=== PATIENT | female | born 1935 | race Caucasian/White ===

== ENCOUNTER → 2023-07-10 09:49 | Outpatient (REF) | payer MEDICARE, BC, SELFPAY ==
[2023-07-10 10:35] LABS: % Basophils 0.9 % (0-2); % Eosinophils 6.4 % (0-6); % Immature Granulocytes 0.2 % (0-0.5); % Lymphocytes 30.9 % (20.5-51.1); % Monocytes 10.1 % (1.7-9.3); % Neutrophils 51.5 % (42.2-75.2); Absolute Eosinophils 0.3 10^3/uL (0-0.7); Absolute Lymphocytes 1.4 10^3/uL (1.2-3.4); Absolute Monocytes 0.5 10^3/uL (0.1-0.6); Absolute Neutrophils 2.4 10^3/uL (1.4-6.5); Hematocrit 34.1 % (37.0-47.0); Hemoglobin 11.6 g/dL (12.0-16.0); Mean Corpuscular Hgb 31.8 pg (27.0-31.0); Mean Corpuscular Volume 93.4 fL (81.0-99.0); Mean Platelet Volume 11.2 fL (7.4-10.4); Nucleated Red Blood Cells % 0 %; Platelet Count 194 10^3/uL (130-400); Red Blood Cell Count 3.65 10^6/uL (4.20-5.40); Red Cell Dist. Width 12.5 % (11.5-14.5); White Blood Cell Count 4.7 10^3/uL (4.8-10.8)
[2023-07-10 11:05] LABS: Glycohemoglobin (HgbA1c) 5.5 % (4.0-5.6)
[2023-07-10 13:27] LABS: ALT (SGPT) 19 U/L (0-35); AST (SGOT) 29 U/L (14-36); Albumin 4.7 g/dl (3.5-5.0); Alkaline Phosphatase 65 U/L (38-126); Blood Urea Nitrogen 13 mg/dl (7-17); Calcium 9.3 mg/dl (8.4-10.2); Carbon Dioxide 25 mmol/L (22-30); Chloride 100 mmol/L (98-107); Glucose 97 mg/dl (70-99); HDL Cholesterol 102 mg/dl; LDL Cholesterol, Calculated 75 mg/dl; Potassium 4.6 mmol/L (3.5-5.1); Sodium 132 mmol/L (135-145); Total Bilirubin 0.7 mg/dl (0.2-1.3); Total Cholesterol 190 mg/dl (50-199); Total Protein 7.3 g/dl (6.3-8.2); Triglyceride 69 mg/dl (10-149); Very Low Density Lipoprotein 13 mg/dl (0-30); eGFR > 60.00
[2023-07-10 15:23] LABS: TSH 2.82 uIU/ml (0.47-4.68)
== END ==
LOC: REG 09:49
PROVIDERS: ATTENDING PHYSICIAN Family Medicine
DX: I10 Essential (primary) hypertension (principal); E78.2 Mixed hyperlipidemia; R73.03 Prediabetes
CPT/HCPCS: 36415; 80053; 80061; 83036; 84443; 85025

== ENCOUNTER → 2023-08-23 09:01 | Outpatient (REF) | payer MEDICARE, BC, SELFPAY | LOC: HWRCS 09:01 | PROVIDERS: ATTENDING PHYSICIAN Family Medicine | DX: R53.83 Other fatigue (principal); R06.09 Other forms of dyspnea | CPT/HCPCS: 93306 ==

== ENCOUNTER → 2023-10-25 10:15 | Outpatient (REF) | payer MEDICARE, BC, SELFPAY ==
[2023-10-25 11:15] LABS: % Basophils 1.2 % (0-2); % Eosinophils 3.9 % (0-6); % Immature Granulocytes 0.2 % (0-0.5); % Lymphocytes 38.7 % (20.5-51.1); % Monocytes 9.6 % (1.7-9.3); % Neutrophils 46.4 % (42.2-75.2); Absolute Basophils 0.1 10^3/uL (0-0.2); Absolute Eosinophils 0.2 10^3/uL (0-0.7); Absolute Monocytes 0.5 10^3/uL (0.1-0.6); Absolute Neutrophils 2.4 10^3/uL (1.4-6.5); Hematocrit 31.8 % (37.0-47.0); Hemoglobin 11.1 g/dL (12.0-16.0); Mean Corp Hgb Conc. 34.9 g/dL (33.0-37.0); Mean Corpuscular Hgb 31.4 pg (27.0-31.0); Mean Corpuscular Volume 89.8 fL (81.0-99.0); Mean Platelet Volume 11.1 fL (7.4-10.4); Nucleated Red Blood Cells % 0 %; Platelet Count 203 10^3/uL (130-400); Red Blood Cell Count 3.54 10^6/uL (4.20-5.40); Red Cell Dist. Width 12.2 % (11.5-14.5); White Blood Cell Count 5.1 10^3/uL (4.8-10.8)
[2023-10-25 11:39] LABS: NT-proBNP 683 pg/ml
[2023-10-25 11:59] LABS: Blood Urea Nitrogen 19 mg/dl (7-17); Calcium 9.4 mg/dl (8.4-10.2); Carbon Dioxide 27 mmol/L (22-30); Chloride 97 mmol/L (98-107); Glucose 101 mg/dl (70-99); Iron 108 ug/dl (37-170); Potassium 4.8 mmol/L (3.5-5.1); Sodium 133 mmol/L (135-145); eGFR > 60.00
[2023-10-25 12:09] LABS: Percent Saturation 36 % (20-50); Total Iron Binding Capacity 300 ug/dl (265-497)
[2023-10-25 13:07] LABS: Folate > 20.0 ng/ml (2.76-20); Vitamin B12 585 pg/ml (239-931)
[2023-10-25 13:20] LABS: Ferritin 65.5 ng/ml (11.1-264.0)
== END ==
LOC: REG 10:15
PROVIDERS: ATTENDING PHYSICIAN Family Medicine
DX: R53.83 Other fatigue (principal); R06.09 Other forms of dyspnea; I50.30 Unspecified diastolic (congestive) heart failure; I11.0 Hypertensive heart disease with heart failure; D52.9 Folate deficiency anemia, unspecified; D51.9 Vitamin B12 deficiency anemia, unspecified
CPT/HCPCS: 36415; 80048; 82607; 82728; 82746; 83540; 83550; 83880; 85025

== ENCOUNTER → 2023-11-15 07:26 | Outpatient (REF) | payer MEDICARE, BC, SELFPAY | LOC: DHCBC/DCA 07:26 | PROVIDERS: ATTENDING PHYSICIAN Family Medicine | DX: R07.89 Other chest pain (principal) | CPT/HCPCS: 78452; 93017; A9500; J2785 ==

== ENCOUNTER → 2023-11-20 09:32 | Outpatient (REF) | payer MEDICARE, BC, SELFPAY ==
[2023-11-20 10:53] LABS: % Basophils 1.5 % (0-2); % Eosinophils 4.2 % (0-6); % Immature Granulocytes 0.4 % (0-0.5); % Lymphocytes 38.3 % (20.5-51.1); % Monocytes 9.3 % (1.7-9.3); % Neutrophils 46.3 % (42.2-75.2); Absolute Basophils 0.1 10^3/uL (0-0.2); Absolute Eosinophils 0.2 10^3/uL (0-0.7); Absolute Monocytes 0.5 10^3/uL (0.1-0.6); Absolute Neutrophils 2.4 10^3/uL (1.4-6.5); Hematocrit 34.5 % (37.0-47.0); Hemoglobin 11.9 g/dL (12.0-16.0); Mean Corp Hgb Conc. 34.5 g/dL (33.0-37.0); Mean Corpuscular Hgb 32.2 pg (27.0-31.0); Mean Corpuscular Volume 93.2 fL (81.0-99.0); Mean Platelet Volume 11.3 fL (7.4-10.4); Nucleated Red Blood Cells % 0 %; Platelet Count 200 10^3/uL (130-400); Red Cell Dist. Width 12.4 % (11.5-14.5); White Blood Cell Count 5.3 10^3/uL (4.8-10.8)
[2023-11-20 11:18] LABS: ALT (SGPT) 18 U/L (0-35); AST (SGOT) 30 U/L (14-36); Albumin 4.8 g/dl (3.5-5.0); Alkaline Phosphatase 61 U/L (38-126); Blood Urea Nitrogen 12 mg/dl (7-17); Carbon Dioxide 30 mmol/L (22-30); Chloride 96 mmol/L (98-107); Glucose 95 mg/dl (70-99); Potassium 4.3 mmol/L (3.5-5.1); Sodium 138 mmol/L (135-145); Total Bilirubin 0.7 mg/dl (0.2-1.3); Total Protein 7.3 g/dl (6.3-8.2); eGFR > 60.00
[2023-11-20 11:22] LABS: Urine Sodium 47 mmol/L (30-90)
[2023-11-20 11:24] LABS: Osmolality Urine 262 mOsm/kg (300-900)
== END ==
LOC: REG 09:32
PROVIDERS: ATTENDING PHYSICIAN Family Medicine
DX: E87.1 Hypo-osmolality and hyponatremia (principal); D64.9 Anemia, unspecified
CPT/HCPCS: 36415; 80053; 83935; 84300; 85025

== ENCOUNTER 2023-12-27 19:44 | Observation (INO) | payer MEDICARE, BC, SELFPAY ==
[2023-12-27] VITALS (21 sets, daily range): BP systolic 108–213; BP diastolic 54–106; BMI 26.4; BMI 26.9
--- NOTE | 2023-12-27 16:14 | ED.GENMED ---
History of Present Illness
General
Chief Complaint: Blood Pressure Problem
Time Seen by Provider: 12/27/23 15:56
History of Present Illness
History of Present Illness:
88-year-old female presents to the emergency department for evaluation of elevated blood pressure and strokelike symptoms. She apparently went to her primary care physician's office today for a Prolia injection, when at the office she was noted to
be markedly hypertensive, despite multiple repeat blood pressure checks her pressure remained elevated. Nonnormal was called by facility staff and on arrival EMS reported that the patient cannot answer simple questions. On arrival to the emergency
department the patient is back to her neurologic baseline. denies any recent bouts of confusion or speech difficulty. She was compliant with her blood pressure meds over the past week.
Past History
Past History
ED Past Medical History: GERD (Barretts), HTN, Hypercholesterolemia and Other (Diverticulitis)
ED Past Surgical History: Appendectomy, Gynecological, Orthopedic and Other (SBO)
Social History
Tobacco: Non-smoker
Alcohol: Occasional
Personal:
Review of Systems
Review of Systems
Allergies reviewed?: Yes
All Other Systems: ROS reviewed and negative except as documented in HPI and ROS
Phy Exam
Physical Exam
Physical Exam:
GEN: Well appearing, NAD, WDWN
HEENT: Oral mucosa moist, no scleral icterus, no nasal congestion
Cardiac: Regular rate
Lung: No respiratory distress, no tachypnea
MSK: No gross deformity or injuries
Skin: Good color, no pallor or jaundice, no rashes
Neuro: AO x3; CN II-XII grossly intact. BUE strength 5/5 in all dobson, sensation intact and symmetric. BLE strength 5/5 in all dobson, sensation intact and symmetric
Psych: Calm, cooperative
Course
Orders/Labs/Results
Orders:
Orders
12/27/23 15:06
CT Head W/o Iv Contrast Stat
Reason For Exam: espressive aphasia
12/27/23 16:13
Electrocardiogram (*1) Urgent
Reason for Study: TIA/Stroke
EKG- Treatment ONCE
12/27/23 16:17
Complete Blood Count/With Diff Urgent
Comprehensive Metabolic Panel Urgent
12/27/23 17:20
HydrALAZINE [Apresoline] 10 mg IV NOW STA
12/27/23 18:17
Aspirin 325 mg PO NOW STA
12/27/23 19:03
Admit/Transfer Patient As Directed
Co-Sign Provider:
Level of Care: Observation services
Assign to:: Telemetry
Physician / Group: chanel
Diagnosis: tia/hypertensive encephelopathy
Reason for Telemetry: CVA/TIA
Date to Stop Telemetry: 12/30/23
Time to Stop Telemetry: 11:00
12/27/23 19:04
Code Status As Directed
Resuscitation Status: Full Code
PRN Pain Medication Management As Directed
May give lesser potent ordered pain med per pt: Yes
preference::
Protocol:: Medication orders for pain may be administered in a
manner that supports deferring to patient preference
when the pt is:
- Requesting an ordered lesser potent pain medication.
Least to most potent pain medications are defined
as: acetaminophen < NSAID < tramadol < opioids
(morphine, oxycodone, hydromorphone).
- Requesting a lesser dose of the same medication IF
ORDERED.
- Requesting a less intrusive route of administration
if both routes are prescribed by the provider (PO <
IV).
12/27/23 21:00
Lorazepam [Ativan] 0.5 mg PO HS
12/30/23 11:00
DC Protocol for Telemetry ONCE
Abnormal Lab Results
12/27/23
16:17
RBC 4.08 L 10^6/uL
(4.20-5.40)
Hct 35.8 L %
(37.0-47.0)
MPV 11.6 H fL
(7.4-10.4)
Chloride 97 L mmol/L
(98-107)
Glucose 105 H mg/dl
(70-99)
Albumin 5.2 H g/dl
(3.5-5.0)
12/27/23 16:17
12/27/23 16:17
Vital Signs
Initial and Last Documented VS:
Initial Vital Signs
Temp Pulse Resp BP Pulse Ox
98.0 F 97 22 175/106 97
12/27/23 15:03 12/27/23 15:03 12/27/23 15:03 12/27/23 15:03 12/27/23 15:03
Last Documented Vital Signs
Temp Pulse Resp BP Pulse Ox
98.0 F 69 12 157/55 97
12/27/23 15:03 12/27/23 19:45 12/27/23 19:45 12/27/23 19:40 12/27/23 18:45
MDM/Problems Addressed
MDM/Problems Addressed:
This patient presents due to markedly elevated blood pressure and a period of confusion/aphasia earlier in the day. Is unclear whether this truly represented a acute neurologic deficit versus a psychosomatic symptom that developed when she was
informed of her markedly elevated blood pressure. Nevertheless she was identified to have a prior stroke on CT that was not previously diagnosed and currently is not on any antiplatelet therapy. Case was discussed with neurology who consulted on
the patient at bedside. She will be admitted to the hospitalist service and started on aspirin for further TIA/stroke workup. Initially we will plan to give antihypertensives due to markedly elevated blood pressure however this was withheld as she
had essentially normal diastolic pressures and I felt this would potentially be detrimental to the patient to treat her systolic only hypertension.
*Critical Care Note
Total Time (30-74mins, 75-104mins- exclusive of procedures): Not Applicable
ED Attending Note
-
Portions of this chart may have been created with voice recognition software.� Occasional wrong word or��sound alike� substitutions may have occurred due to the inherent limitations of voice recognition software.
Discharge Plan
Departure
Patient Disposition: Admit
Date of Disposition: 12/27/23
Time of Disposition: 18:18
Admit to: Med/Surg
Presentation/result/management discussed w/ accepting MD/DO: Hospitalist
Discharge Problem:
Transient ischemic attack (TIA), Hypertensive crisis
Interventions
Interventions:
*Risk Screen - Suicide Last Done: 12/27/23 15:03
*General Assessment Last Done: 12/27/23 15:03
*Neglect/Abuse Screening Last Done: 12/27/23 15:03
ED- Fall Risk Assessment Last Done: 12/27/23 16:24
*ED COVID-19 Vaccine History Last Done: 12/27/23 16:00
ED- Cardiac Assessment Last Done: 12/27/23 16:00
ED- Neurological Assessment Last Done: 12/27/23 16:00
ED- Pulmonary Assessment Last Done: 12/27/23 16:00
ED Swallowing Screen Last Done: 12/27/23 16:23
[2023-12-27 16:30] LABS: % Basophils 1.1 % (0-2); % Eosinophils 2.3 % (0-6); % Immature Granulocytes 0.3 % (0-0.5); % Lymphocytes 37.4 % (20.5-51.1); % Monocytes 6.3 % (1.7-9.3); % Neutrophils 52.6 % (42.2-75.2); Absolute Basophils 0.1 10^3/uL (0-0.2); Absolute Eosinophils 0.2 10^3/uL (0-0.7); Absolute Lymphocytes 2.8 10^3/uL (1.2-3.4); Absolute Monocytes 0.5 10^3/uL (0.1-0.6); Absolute Neutrophils 3.9 10^3/uL (1.4-6.5); Hematocrit 35.8 % (37.0-47.0); Hemoglobin 12.5 g/dL (12.0-16.0); Mean Corp Hgb Conc. 34.9 g/dL (33.0-37.0); Mean Corpuscular Hgb 30.6 pg (27.0-31.0); Mean Corpuscular Volume 87.7 fL (81.0-99.0); Mean Platelet Volume 11.6 fL (7.4-10.4); Nucleated Red Blood Cells % 0 %; Platelet Count 230 10^3/uL (130-400); Red Blood Cell Count 4.08 10^6/uL (4.20-5.40); Red Cell Dist. Width 12.1 % (11.5-14.5); White Blood Cell Count 7.5 10^3/uL (4.8-10.8)
[2023-12-27 17:24] LABS: ALT (SGPT) 20 U/L (0-35); AST (SGOT) 31 U/L (14-36); Albumin 5.2 g/dl (3.5-5.0); Alkaline Phosphatase 91 U/L (38-126); Blood Urea Nitrogen 14 mg/dl (7-17); Carbon Dioxide 25 mmol/L (22-30); Chloride 97 mmol/L (98-107); Estimated Creatinine Clearance 51 ml/min; Glucose 105 mg/dl (70-99); Potassium 4.1 mmol/L (3.5-5.1); Sodium 137 mmol/L (135-145); Total Bilirubin 0.6 mg/dl (0.2-1.3); eGFR > 60.00
--- NOTE | 2023-12-27 19:07 | HPS.HSE ---
Family Physician
-
Family Physician: Esme Giron MD
Chief Complaint
-
hypertension
History of Present Illness
88-year-old female past medical history of left eye blindness, Bowden's esophagus, GERD, hypertension, hypercholesteremia, diverticulitis, presenting for elevated blood pressure prophylaxis. Patient went to her primary care physician office today
for Prolia injection and while at the office she was noted to be markedly hypertensive with a blood pressure of 180 despite multiple blood pressure checks. EMS was called. EMS reported the patient cannot answer simple questions. On arrival to the
emergency department back to normal baseline mental status. denies any bouts of confusion or speech difficulty. She has been compliant with her blood pressure medications over the past week.
Patient states that she had a headache like a pulsating in her head earlier. Denies headache currently. Denies any visual symptoms. She states that she was very anxious earlier and felt she was shaking and stuttering but denies feeling confused.
Denies any numbness or tingling, focal weakness. She did have some dizziness earlier but denies vertigo.
Denies smoking or alcohol use.
Medical History
Past Medical History
Past Medical History: Reports Other ( left eye blindness, Bowden's esophagus, GERD, hypertension, hypercholesteremia, diverticulitis, )
Past Surgical History: Reports Other ( Appendectomy, Gynecological, Orthopedic and Other (SBO))
Social History
Tobacco: Non-smoker
Alcohol: None
Drug: None
Family History
Family History: Not pertinent
Allergies / Home Medications
Allergies reflects when Allergies were last updated in [employer].
Home Medications with original date entered in [employer]
Allergy/Medication List:
Allergies
Allergy/AdvReac Type Severity Reaction Status Date / Time
No Known Allergies Allergy Verified 02/16/22 12:46
Home Medications
atorvastatin 10 mg tablet 10 mg PO HS 09/17/17
calcium carbonate 600 mg PO DAILY 09/17/17
denosumab 60 mg/mL subcutaneous syringe (Prolia) 60 mg SQ [id number] 09/17/17
olmesartan 20 mg tablet 20 mg PO DAILY 09/17/17
atenolol 25 mg tablet 25 mg PO DAILY 12/27/23
therapeutic multivitamin 1 tab PO DAILY 12/27/23
Review of Systems
-
History Source: Patient
A 12 point ROS was completed and negative except as noted: Yes
Constitutional: Reports No Symptoms
EENT: Reports No Symptoms
Respiratory: Reports No Symptoms
Cardiac: Reports No Symptoms
Abdomen/GI: Reports No Symptoms
: Reports No Symptoms
Musculoskeletal: Reports No Symptoms
Skin: Reports No Symptoms
Neurological: Reports No Symptoms
Endocrine: Reports No Symptoms
Hematologic/Lymphatic: Reports No Symptoms
Psych: Reports No Symptoms
Physical Exam
Vital Signs
Vital Signs
Temp Pulse Resp BP Pulse Ox
98.0 F 71 17 186/65 96
12/27/23 15:03 12/27/23 17:53 12/27/23 17:53 12/27/23 17:53 12/27/23 17:53
Physical Exam
General: Well Developed, Well Nourished and No Apparent Distress
HEENT: NormoCephalic, Moist mucous membranes and Atraumatic
Respiratory: Clear
Cardiac: S1/S2 and Regular Rhythm; No Murmur or Rub
GI: Soft, Non Tender, Non Distended and Normal Bowel Sounds; No Organomegaly
Rectal: Deferred by Provider
Musculoskeletal: No Clubbing, No Cyanosis and No Edema
Skin: No Rash
Neuro: Nonfocal/grossly intact
Laboratory Results
-
12/27/23 16:17
12/27/23 16:17
Laboratory Results
Total Bilirubin 0.6 mg/dl (0.2-1.3) 12/27/23 16:17
AST 31 U/L (14-36) 12/27/23 16:17
ALT 20 U/L (0-35) 12/27/23 16:17
Alkaline Phosphatase 91 U/L (38-126) 12/27/23 16:17
Data Reviewed
-
Lab Data: Labs Reviewed by me
Old Records: Reviewed
Impression/Plan
-
IMPRESSION:
PLAN:
# TIA/hypertensive encephalopathy
-Currently no neurological deficits
-Aspirin given
-Hydralazine 10 mg given
-Check A1c and lipid panel
-MRI brain
# Hypertensive urgency
-Continue olmesartan, atenolol
-As needed hydralazine
Moderate eccentric tricuspid regurgitation
Bowden's esophagus/GERD
Hypercholesterolemia
-Continue statin
History of diverticulitis
Osteoporosis
Left eye blindness
Full code
DVT prophylaxis�SCDs
Regular diet
[2023-12-27] MEDS: ASPIRIN 325 MG PO (19:17)
--- NOTE | 2023-12-27 19:46 | CON.NEURO4 ---
Consultation - Neurology 4
-
CONSULTING PHYSICIAN: Arsenio Gomez MD
REFERRING PHYSICIAN: ED
DICTATED BY: Arsenio Gomez MD
DATE/TIME OF REQUEST: 12/27/2023
DATE/TIME OF CONSULTATION: 12/27/2023
Reason for Consultation: Speech impediment
History of Present Illness:
This is a 88 year old right handed female who has presented to the hospital with (chief complaint) of AMS. She gives a h/o HTN, hyperlipidemia, CRAO, GERD, Bowden's, Diverticulitis who had been in her USOH this morning. She had bee at her primary
care office and her BP was elevated. Later she went to another office for Prolia injection and BP was still elevated. Given her persistent HTN, EMS was notified
when EMS tried to interview her she became aphasic briefly. Her BP continued to be elevated. She was then transferred to the ER. On arrival her speech retuned and she was at baseline
She was seen by Cardiology yesterday when her BP was normal
Past Medical History: HTN,
Surgical History: Appendectomy, Ortho
Family History: [place]
Social History: lives at home with her . Does not smoke or use alcohol
Allergies: NKA
Home Medications: Addendum
Review of Symptoms:
Patient denies any fever, headache, chest pain, shortness of breath, GI or symptoms.
�Per the HPI.�All systems are reviewed negative except above.
Vital Signs:
The patient has a
Temp Pulse Resp BP Pulse Ox
36.7 C 72 14 185/91 97
12/27/23 15:03 12/27/23 19:20 12/27/23 19:20 12/27/23 19:00 12/27/23 18:45
Physical Exam:
The patient is afebrile, heart sounds S1 and S2 are (regular , and chest is clear to auscultation bilaterally.
- If not clear, describe.
Neurologic Examination:
The patient is awake, alert and oriented x 3. She) is able to follow commands and answer questions appropriately. There is no aphasia or dysarthria.
On cranial nerve assessment: She is BLIND Left Eye pupils are 3 mm asymmetrical, and reactive to light and accommodation(R). Visual dobson are full.
Extraocular movements are intact. Facial sensations are intact and bilaterally symmetrical. There is no facial asymmetry. Hearing is intact bilaterally.
Tongue palate and uvula are midline. Sternocleidomastoid strengths are full bilaterally.
Motor strengths are 5/5 bilateral upper and lower extremities on medical research Grindstone scale. There is no drift or involuntary movement noted.
Deep tendon reflexes are + bilateral upper and lower extremities and Babinski is absent bilaterally.
Sensations of pain, touch, temperature and vibration are intact and bilaterally symmetrical. Coordination is intact by finger to nose bilaterally.
Rombergs Negative. Gait WNL
Lab Results: See addendum
Neuro Imaging: CT head: Atrophy. Small vessel disease. 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
Impression: Mrs SHIRIN TOMAS is a 88 year old F who has presented to the hospital with (symptoms/chief complaint). of uncontrolled HTN and brief episode of aphasia
Differentials for the patient's presentation include:
1. Hypertensive crisis
2. Thalamic lacune(R)
3. Anxiety
Patient has the following risk factors for their symptoms:
IV Tenecteplase/IAT candidacy
Recommendations:
1. Ecasa 325>>81
2. BP control. Keep systolic 140-160
3. Lipitor 20
4. Ativan 0.5mg qhs
5. MRI/MRA head
Discussed patient care with: ED
Allergies
-
Allergies
Allergy/AdvReac Type Severity Reaction Status Date / Time
No Known Allergies Allergy Verified 02/16/22 12:46
Vital Signs and Labs
-
Vital Signs and Labs:
Vital Signs
Temp Pulse Resp BP Pulse Ox
36.7 C 72 14 185/91 97
12/27/23 15:03 12/27/23 19:20 12/27/23 19:20 12/27/23 19:00 12/27/23 18:45
Lab Results
12/27/23 16:17
12/27/23 16:17
Sodium 137 mmol/L (135-145) 12/27/23 16:17
Potassium 4.1 mmol/L (3.5-5.1) 12/27/23 16:17
BUN 14 mg/dl (7-17) 12/27/23 16:17
Glucose 105 mg/dl (70-99) H 12/27/23 16:17
Calcium 10.0 mg/dl (8.4-10.2) 12/27/23 16:17
Medications
-
Active Medications
Generic Name Dose Route Start Last Admin
Trade Name Ediq PRN Reason Stop Dose Admin
Lorazepam 0.5 mg 12/27/23 22:00
Lorazepam 0.5 Mg Tablet PO 01/24/24 21:59
HS ARIELLE
Home Medications
�Medication �Instructions �Recorded
atorvastatin 10 mg tablet 10 mg PO HS 09/17/17
calcium carbonate 600 mg PO DAILY 09/17/17
denosumab 60 mg/mL subcutaneous 60 mg SQ [id number] 09/17/17
syringe (Prolia)
olmesartan 20 mg tablet 20 mg PO DAILY 09/17/17
atenolol 25 mg tablet 25 mg PO DAILY 12/27/23
therapeutic multivitamin 1 tab PO DAILY 12/27/23
[2023-12-27] MEDS: ATIVAN 0.5 MG PO (22:38)
[2023-12-27] MEDS: LIPITOR 10 MG PO (22:38)
--- NOTE | 2023-12-27 23:00 | PTCARENOTE ---
Patient admitted to unit for HTN emergency, r/u TIA. Patient ambulatory with standby assist. States some dizziness with ambulation. AAOx3, pleasant and cooperative. Tele monitor SR. Neuro checks completed. C/o headache 07/18 but denies medications at
this time. States was taking outpatient ABX for recent sinus infection. Will continue to monitor.
[2023-12-28] VITALS (8 sets, daily range): BP systolic 115–193; BP diastolic 54–74
[2023-12-28 07:26] LABS: % Eosinophils 3.5 % (0-6); % Immature Granulocytes 0.2 % (0-0.5); % Lymphocytes 42.7 % (20.5-51.1); % Monocytes 10.4 % (1.7-9.3); % Neutrophils 42.2 % (42.2-75.2); Absolute Basophils 0.1 10^3/uL (0-0.2); Absolute Eosinophils 0.2 10^3/uL (0-0.7); Absolute Lymphocytes 2.5 10^3/uL (1.2-3.4); Absolute Monocytes 0.6 10^3/uL (0.1-0.6); Absolute Neutrophils 2.4 10^3/uL (1.4-6.5); Hemoglobin 10.8 g/dL (12.0-16.0); Mean Corp Hgb Conc. 34.8 g/dL (33.0-37.0); Mean Corpuscular Hgb 31.2 pg (27.0-31.0); Mean Corpuscular Volume 89.6 fL (81.0-99.0); Mean Platelet Volume 11.4 fL (7.4-10.4); Nucleated Red Blood Cells % 0 %; Platelet Count 182 10^3/uL (130-400); Red Blood Cell Count 3.46 10^6/uL (4.20-5.40); Red Cell Dist. Width 12.1 % (11.5-14.5); White Blood Cell Count 5.8 10^3/uL (4.8-10.8)
[2023-12-28 07:47] LABS: ALT (SGPT) 17 U/L (0-35); AST (SGOT) 27 U/L (14-36); Albumin 4.1 g/dl (3.5-5.0); Alkaline Phosphatase 75 U/L (38-126); Blood Urea Nitrogen 13 mg/dl (7-17); Calcium 9.6 mg/dl (8.4-10.2); Carbon Dioxide 28 mmol/L (22-30); Chloride 98 mmol/L (98-107); Estimated Creatinine Clearance 42 ml/min; Glucose 100 mg/dl (70-99); Potassium 4.5 mmol/L (3.5-5.1); Sodium 135 mmol/L (135-145); Total Bilirubin 0.7 mg/dl (0.2-1.3); Total Protein 6.3 g/dl (6.3-8.2); eGFR > 60.00
[2023-12-28] MEDS: THERAGRAN 1 TABLET PO (09:26)
[2023-12-28] MEDS: BENICAR 20 MG PO (09:26)
[2023-12-28] MEDS: OSCAL CAL 500 500 MG PO (09:26)
--- NOTE | 2023-12-28 10:03 | W.PN.HOSP.TC ---
Addendum entered and electronically signed by Tam Hernandez MD 12/28/23 11:10:
I saw and evaluated the patient. I reviewed the resident�s note and agree with findings and plan as documented in the resident�s note.
Currently without acute complaints.
Gen: NAD, AAOx3.
Eyes: no scleral icterus.
Neck: supple.
CV: RRR, +S1/S2, no m/r/g.
Resp: CTAB, no rales, wheezes, or rhonchi.
Abd: +BS, soft, NT, ND
Skin: No rashes.
Neuro: CN 2-12 intact, non-focal.
Psych: Normal mood and affect.
CT brain:
1. 5.2 mm lacunar infarct in the right thalamus containing either cytotoxic edema or encephalomalacia.
2. 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
3. Mild diffuse cerebral and cerebellar volume loss.
Expressive aphasia:
-resolved upon arrival to the ER
-Had hypertensive urgency on admission
-CT brain with 5.2 mm lacunar infarct in the right thalamus containing either cytotoxic edema or encephalomalacia
-Follow MRI/A head
-neuro following
-cont statin, start ASA
-cont Benicar/Atenolol
Original Note:
Today's Communication/Plan
-
Follow brain MRI and head MRA
Monitor blood pressure
Plan discharge after neurology consult with MRI reports
Assessment / Plan
Assessment / Plan
IMPRESSION
An 88 year old female,pleasant and comfortable,fully oriented in time place and person.No difficulties in speaking or swallowing.Admitted for Hypertensive urgency,Ct head showed no acute changes.
ASSESSMENT AND PLAN
Hypertensive urgency secondary to anxiety/white coat hypertension
Patient has history of hypertension for which she is on olmesartan and atenolol at home
She had a systolic blood pressure of greater than 180 when she visited her primary care physician yesterday
She also had shaking of hands, shortness of breath and difficulty in speaking
CT scan of the head was done that showed
IMPRESSION:
1. 5.2 mm lacunar infarct in the right thalamus containing either cytotoxic edema or encephalomalacia.
2. 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
3. Mild diffuse cerebral and cerebellar volume loss.
Patient was fully oriented in all times
No focal deficit
Patient has history of whitecoat hypertension----States that she was scared that she might have a stroke and was panicking but was fully oriented at all times
Neurology consult appreciated----Gave high dose of aspirin, target BP 1 40-1 60, Lipitor, Ativan, MRI/MRA of head
Follow MRI/MRA report
Monitor blood pressure
Plan discharge
OTHER
Hypertensive urgency-Continue olmesartan, atenolol
-As needed hydralazine
Bowden's esophagus/GERD-Continue calcium carbonate
Hypercholesterolemia-Continue statin
History of diverticulitis
Osteoporosis-Prolia 60 mg subcutaneous 6 monthly
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
Full code
DVT prophylaxis�SCDs
Regular diet
DVT PROPHYLAXIS
CODE STATUS
Anticipated Discharge: 24 - 48 hours
Subjective/Interval History
-
Date of Service: December 28, 2023
No active issues,patient eating well and walking around.Gives history of panic attack as she was scared to get stroke when her bp was high.Also gave history of white coat hypertension
Objective Data
-
Labs:
Laboratory Results
12/28/23
06:39
WBC 5.8
Hgb 10.8 L
Hct 31.0 L
Plt Count 182 D
Sodium 135
Potassium 4.5
Chloride 98
Carbon Dioxide 28
BUN 13
Creatinine 0.7
Glucose 100 H
Calcium 9.6
Total Bilirubin 0.7
AST 27
ALT 17
Alkaline Phosphatase 75
Vital Signs:
Vital Signs
Temp Pulse Resp BP Pulse Ox
98.1 F 70 18 144/54 94
12/28/23 07:00 12/28/23 07:00 12/28/23 07:00 12/28/23 07:00 12/28/23 07:00
I&O
12/27/23 12/28/23 12/29/23
06:59 06:59 06:59
Intake Total 240 / 240
Balance 240 / 240
Review of Systems
-
All other systems: Reviewed and negative
Physical Exam
-
General: Well Developed, Well Nourished, No Apparent Distress, Comfortable and Conversant
Respiratory: Clear to Auscultation
Cardiac: Regular Rhythm and S1/S2
GI: Soft, Nontender, Nondistended and Normal Bowel Sounds
Genito-urinary: No Costovertebral Tender
Musculoskeletal: No Clubbing, No Cyanosis and No Edema
Skin: Warm and Dry
Neuro: Awake, Alert, Oriented and No Motor Deficits
Hematologic / Lymphatic: No Lymphadenopathy
Psych: Calm
[2023-12-28] MEDS: TENORMIN 25 MG PO (10:53)
[2023-12-28] MEDS: LOW STRENGTH ASPIRIN 81 MG PO (12:40)
--- NOTE | 2023-12-28 14:42 | CM ---
Initial assessment completed with pts son while the pt was off the unit.
Pt is OBS and verbally reviewed with son.
Pt at baseline lives with her in a 2 story home with 0ste and a 2nd floor bed/bath
Per son, pt is indep and drives at baseline. She does not use Equipment, and has no hx of VN/SNF.
PCP; Esme Giron
Pharm; Naeem Méndez
Plan; follow for possible needs
[2023-12-28] MEDS: ATIVAN 0.5 MG PO (21:04)
[2023-12-28] MEDS: LIPITOR 10 MG PO (21:04)
[2023-12-29 03:38] VITALS: BP 143/68
[2023-12-29 07:31] VITALS: BP 137/69
[2023-12-29] MEDS: TENORMIN 25 MG PO (07:33)
[2023-12-29] MEDS: LOW STRENGTH ASPIRIN 81 MG PO (07:33)
[2023-12-29] MEDS: BENICAR 20 MG PO (07:34)
[2023-12-29] MEDS: OSCAL CAL 500 500 MG PO (07:34)
[2023-12-29] MEDS: THERAGRAN 1 TABLET PO (07:34)
--- NOTE | 2023-12-29 09:04 | W.PN.HOSP.TC ---
Addendum entered and electronically signed by Tam Hernandez MD 12/29/23 10:26:
Case discussed with Dr. Gomez over [employer] and he has medically cleared the pt for discharge. Agrees with ASA/statin at this time.
Addendum entered and electronically signed by Tam Hernandez MD 12/29/23 09:21:
I saw and evaluated the patient. I reviewed the resident�s note and agree with findings and plan as documented in the resident�s note.
Currently without acute complaints.
Gen: NAD, AAOx3.
Eyes: no scleral icterus.
Neck: supple.
CV: RRR, +S1/S2, no m/r/g.
Resp: CTAB, no rales, wheezes, or rhonchi.
Abd: +BS, soft, NT, ND
Skin: No rashes.
Neuro: CN 2-12 intact, non-focal.
Psych: Normal mood and affect.
CT brain:
1. 5.2 mm lacunar infarct in the right thalamus containing either cytotoxic edema or encephalomalacia.
2. 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
3. Mild diffuse cerebral and cerebellar volume loss.
MRI brain:
1. No MRI evidence for acute infarct or intracranial hemorrhage.
2. Small bilateral chronic lacunar infarcts in the thalami.
3. Moderate periventricular white matter leukoaraiosis.
4. Mild to moderate diffuse cerebral and cerebellar volume loss.
5. Mild paranasal sinus mucosal disease.
6. Severe cervical facet joint arthrosis causing mild spinal cord compression and central canal stenosis at C2/C3 and C3/C4.
MRA brain: Normal
Expressive aphasia:
-resolved upon arrival to the ER
-Had hypertensive urgency on admission
-CT brain with 5.2 mm lacunar infarct in the right thalamus containing either cytotoxic edema or encephalomalacia
-MRI brain without acute infarct or hemorrhage
-neuro following
-cont statin, ASA started
-cont Benicar/Atenolol
-After review the patient's blood pressure trend her blood pressures have been labile. At this time I would add Norvasc 2.5 mg daily to the patient's antihypertensive medication regimen.
Medically cleared for discharge.
Total time spent on d/c = 31 min. This included today's physical exam, progress note, review of laboratory and diagnostic data, preparation of discharge documents and prescriptions, and discussions about the pt's hospital course and discharge plan
with the patient and other administrative medical director involved in the patient's care.
Original Note:
Today's Communication/Plan
-
Plan discharge today
Assessment / Plan
Assessment / Plan
IMPRESSION
An 88 year old female,pleasant and comfortable,fully oriented in time place and person.No difficulties in speaking or swallowing.Admitted for Hypertensive urgency,Ct head showed no acute changes.
ASSESSMENT AND PLAN
Hypertensive urgency secondary to anxiety/white coat hypertension
Patient has history of hypertension for which she is on olmesartan and atenolol at home
She had a systolic blood pressure of greater than 180 when she visited her primary care physician yesterday
She also had shaking of hands, shortness of breath and difficulty in speaking
Patient has history of whitecoat hypertension/gives history of panic due to worry about a stroke when her blood pressure raised
CT scan of the head was done that showed
IMPRESSION:
1. 5.2 mm lacunar infarct in the right thalamus containing either cytotoxic edema or encephalomalacia.
2. 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
3. Mild diffuse cerebral and cerebellar volume loss.
Patient was fully oriented in all times
No focal deficit
Patient has history of whitecoat hypertension----States that she was scared that she might have a stroke and was panicking but was fully oriented at all times
Neurology consult appreciated----Gave high dose of aspirin, target BP 1 40-1 60, Lipitor, Ativan, MRI/MRA of head
MRI/MRA report
1. No MRI evidence for acute infarct or intracranial hemorrhage.
2. Small bilateral chronic lacunar infarcts in the thalami.
3. Moderate periventricular white matter leukoaraiosis.
4. Mild to moderate diffuse cerebral and cerebellar volume loss.
5. Mild paranasal sinus mucosal disease.
6. Severe cervical facet joint arthrosis causing mild spinal cord compression and central canal stenosis at C2/C3 and C3/C4.
MRA head
FINDINGS:
Normal.
There is no evidence of major intracranial branch occlusion significant stenosis in the major intracranial vessels.
The anterior middle and posterior cerebral arteries are widely patent bilaterally and free of any areas of significant stenosis.
Antegrade flow is demonstrated in both vertebral arteries which are codominant
The basilar artery is normal.
The intracranial portions of both internal carotid arteries are normal
There is no evidence of aneurysm or vascular malformation.
There is no dissection.
OTHER
Hypertensive urgency-Continue olmesartan, atenolol
Bowden's esophagus/GERD-Continue calcium carbonate
Hypercholesterolemia-Continue statin
History of diverticulitis
Osteoporosis-Prolia 60 mg subcutaneous 6 monthly
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
Full code
DVT prophylaxis�SCDs
Regular diet
Anticipated Discharge: Within 24 hours
Subjective/Interval History
-
Date of Service: December 29, 2023
No active issues, patient feels well, able to move all her limbs, no tremors or headache
Objective Data
-
Vital Signs:
Vital Signs
Temp Pulse Resp BP Pulse Ox
98.1 F 78 18 143/68 96
12/29/23 07:31 12/29/23 07:31 12/29/23 07:31 12/29/23 07:33 12/29/23 07:31
I&O
12/28/23 12/29/23 12/30/23
06:59 06:59 06:59
Intake Total 240 / 240 1740 / 1740
Balance 240 / 240 1739 / 1739
Review of Systems
-
All other systems: Reviewed and negative
Physical Exam
-
General: Well Developed, Well Nourished, No Apparent Distress, Comfortable and Conversant
HEENT: Anicteric and PERRLA
Respiratory: Clear to Auscultation
Cardiac: Regular Rhythm and S1/S2
GI: Soft, Nontender, Nondistended and Normal Bowel Sounds
Genito-urinary: No Costovertebral Tender
Musculoskeletal: No Clubbing, No Cyanosis and No Edema
Skin: Warm and Dry
Neuro: Awake, Alert, Oriented and No Motor Deficits
Hematologic / Lymphatic: No Lymphadenopathy
Psych: Calm
--- NOTE | 2023-12-29 09:46 | CM ---
Spoke with patient who was preparing for discharge. The patient says ehe feels ready for discharge home today. will provide transport home.
[facility] completed yesterday per CM notes.
No CM d/c needs identified.
Plan home today.
--- NOTE | 2023-12-29 10:43 | W.DCSUMMARY ---
Addendum entered and electronically signed by Tam Hernandez MD 12/29/23 11:01:
Read, reviewed, and agree. See same day progress note for additional details.
Original Note:
Discharge Summary
Discharge Data
Date of Admission: 12/27/23
Date of Discharge: 12/29/23
-
Pending Results: No
Hospital Course
Discharging Physician : Dr. Tam Hernandez, Dr. Alexa Kirkland
Disposition : Home
Primary care physician : Dr. Esme Panda
Principal Discharge diagnosis : Hypertensive Urgency
Chronic Discharge diagnosis :
Hypertensive urgency
Bowden's esophagus/GERD
Hypercholesterolemia
History of diverticulitis
Osteoporosis
left eye blindness-
Hospital Course
:
Patient is an 88-year-old female who presented with a systolic blood pressure of greater than 180 mmHg and expressive aphasia. Her aphasia had resolved upon arrival to the emergency. A CT scan of head showed 5.2 mm lacunar infarct in the right
thalamus containing either cytotoxic edema or enkephalin malacia. She had no focal neurological deficit and she was fully oriented. An MRI of the brain showed no acute infarct or hemorrhage and the MRA showed patent vessels. Neurology consulted
who advised to continue statin and start aspirin. After review of the patient's blood pressure trend, her blood pressures have been labile at this time added Norvasc 2.5 mg daily to patient's antihypertensive medication regimen.
Important imaging findings :
CT HEAD IMPRESSION: 12/27/2023
1. 5.2 mm lacunar infarct in the right thalamus containing either cytotoxic edema or encephalomalacia.
2. 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
3. Mild diffuse cerebral and cerebellar volume loss.
MRI BRAIN IMPRESSION:12/28/2023
1. No MRI evidence for acute infarct or intracranial hemorrhage.
2. Small bilateral chronic lacunar infarcts in the thalami.
3. Moderate periventricular white matter leukoaraiosis.
4. Mild to moderate diffuse cerebral and cerebellar volume loss.
5. Mild paranasal sinus mucosal disease.
6. Severe cervical facet joint arthrosis causing mild spinal cord compression and central canal stenosis at C2/C3 and C3/C4.
MRA HEAD IMPRESSION:12/28/2023
Normal.
Discharge Plan
-
Patient Disposition: Home (Routine Discharge)
Discharge Diagnosis/Procedures: Hypertensive Urgency
Condition: Fair
Diet: Low Cholesterol
Activity: As tolerated
Driving Restrictions: As prior to admission
Bathing Restrictions: OK to Shower
Referrals:
Esme Giron MD [Family Provider] - in less than 1 week
Prescriptions:
New
amlodipine [Norvasc] 2.5 mg tablet
2.5 mg PO DAILY 30 Days Qty: 30 0RF
aspirin 81 mg tablet,delayed release (DR/EC)
81 mg PO DAILY 30 Days Qty: 30 0RF
Continued
atorvastatin 10 MG tablet
10 mg PO HS
calcium carbonate 600 MG tablet
600 mg PO DAILY
olmesartan 20 MG tablet
20 mg PO DAILY
Prolia 60 MG/ML syringe
60 mg SQ [id number]
atenolol 25 mg Tablet
25 mg PO DAILY
therapeutic multivitamin Tablet
1 tab PO DAILY
Discharge Orders:
Discharge Patient (As Directed); Ordered 12/29/23
Ordered By: Alexa Kirkland
Discharge Date and Time
Print Language: TURKMEN
[2023-12-29 11:20] VITALS: BP 171/62
--- NOTE | 2023-12-29 12:01 | PTCARENOTE ---
Patient AAOx4, Patient's BP 171/62, HR 74 before d/c. MD Kirkland notified and cleared to be leave. AVS reviewed with patient. tele monitor removed. ok for d/c
== END 2023-12-29 12:14 | disposition home or self-care (01) ==
LOC: 4 WEST ACU 19:44
PROVIDERS: Physician Assistant; ADMITTING PHYSICIAN Hospitalist; ATTENDING PHYSICIAN Internal Medicine; EMERGENCY PHYSICIAN Emergency Medicine; FAMILY PHYSICIAN Family Medicine; OTHER PHYSICIAN Psychiatry & Neurology Neurology
DX: I16.0 Hypertensive urgency (principal); I10 Essential (primary) hypertension; E78.00 Pure hypercholesterolemia, unspecified; K21.9 Gastro-esophageal reflux disease without esophagitis; K22.70 Barrett's esophagus without dysplasia; R47.01 Aphasia; H54.62 Unqualified visual loss, left eye, normal vision right eye; R25.1 Tremor, unspecified; M81.0 Age-related osteoporosis without current pathological fracture; I07.1 Rheumatic tricuspid insufficiency; F41.9 Anxiety disorder, unspecified; I67.81 Acute cerebrovascular insufficiency; R94.31 Abnormal electrocardiogram [ECG] [EKG]; M47.12 Other spondylosis with myelopathy, cervical region; M48.02 Spinal stenosis, cervical region; R06.02 Shortness of breath; G93.89 Other specified disorders of brain; Z86.73 Personal history of transient ischemic attack (TIA), and cerebral infarction without residual deficits; Z90.49 Acquired absence of other specified parts of digestive tract; Z87.19 Personal history of other diseases of the digestive system
CPT/HCPCS: 70450; 70544; 70551; 80053; 85025; 93005; 96374; 99285; G0378

== ENCOUNTER → 2024-01-23 09:43 | Outpatient (REF) | payer MEDICARE, BC, SELFPAY ==
[2024-01-23 11:07] LABS: % Basophils 1.5 % (0-2); % Eosinophils 2.8 % (0-6); % Immature Granulocytes 0.4 % (0-0.5); % Lymphocytes 37.2 % (20.5-51.1); % Monocytes 9.8 % (1.7-9.3); % Neutrophils 48.3 % (42.2-75.2); Absolute Basophils 0.1 10^3/uL (0-0.2); Absolute Eosinophils 0.2 10^3/uL (0-0.7); Absolute Monocytes 0.5 10^3/uL (0.1-0.6); Absolute Neutrophils 2.6 10^3/uL (1.4-6.5); Hematocrit 34.9 % (37.0-47.0); Mean Corp Hgb Conc. 34.4 g/dL (33.0-37.0); Mean Corpuscular Hgb 31.7 pg (27.0-31.0); Mean Corpuscular Volume 92.3 fL (81.0-99.0); Mean Platelet Volume 11.5 fL (7.4-10.4); Nucleated Red Blood Cells % 0 %; Platelet Count 193 10^3/uL (130-400); Red Blood Cell Count 3.78 10^6/uL (4.20-5.40); Red Cell Dist. Width 12.5 % (11.5-14.5); White Blood Cell Count 5.3 10^3/uL (4.8-10.8)
[2024-01-23 11:34] LABS: ALT (SGPT) 25 U/L (0-35); AST (SGOT) 32 U/L (14-36); Albumin 4.7 g/dl (3.5-5.0); Alkaline Phosphatase 93 U/L (38-126); Blood Urea Nitrogen 13 mg/dl (7-17); Calcium 9.7 mg/dl (8.4-10.2); Carbon Dioxide 27 mmol/L (22-30); Chloride 102 mmol/L (98-107); Glucose 99 mg/dl (70-99); Potassium 4.9 mmol/L (3.5-5.1); Sodium 139 mmol/L (135-145); Total Bilirubin 0.6 mg/dl (0.2-1.3); Total Protein 7.3 g/dl (6.3-8.2); eGFR > 60.00
== END ==
LOC: REG 09:43
PROVIDERS: ATTENDING PHYSICIAN Family Medicine
DX: I16.9 Hypertensive crisis, unspecified (principal); I63.9 Cerebral infarction, unspecified; I11.0 Hypertensive heart disease with heart failure
CPT/HCPCS: 36415; 80053; 85025

== ENCOUNTER → 2024-07-03 10:15 | Outpatient (REF) | payer MEDICARE, BC, SELFPAY ==
[2024-07-03 11:03] LABS: % Basophils 1.1 % (0-2); % Immature Granulocytes 0.4 % (0-0.5); % Lymphocytes 29.9 % (20.5-51.1); % Monocytes 11.3 % (1.7-9.3); % Neutrophils 52.3 % (42.2-75.2); Absolute Basophils 0.1 10^3/uL (0-0.2); Absolute Eosinophils 0.3 10^3/uL (0-0.7); Absolute Lymphocytes 1.6 10^3/uL (1.2-3.4); Absolute Monocytes 0.6 10^3/uL (0.1-0.6); Absolute Neutrophils 2.8 10^3/uL (1.4-6.5); Hematocrit 33.5 % (37.0-47.0); Hemoglobin 11.6 g/dL (12.0-16.0); Mean Corp Hgb Conc. 34.6 g/dL (33.0-37.0); Mean Corpuscular Hgb 31.8 pg (27.0-31.0); Mean Corpuscular Volume 91.8 fL (81.0-99.0); Nucleated Red Blood Cells % 0 %; Platelet Count 212 10^3/uL (130-400); Red Blood Cell Count 3.65 10^6/uL (4.20-5.40); Red Cell Dist. Width 12.5 % (11.5-14.5); White Blood Cell Count 5.4 10^3/uL (4.8-10.8)
[2024-07-03 11:23] LABS: ALT (SGPT) 20 U/L (0-35); AST (SGOT) 25 U/L (14-36); Albumin 4.8 g/dl (3.5-5.0); Alkaline Phosphatase 66 U/L (38-126); Blood Urea Nitrogen 12 mg/dl (7-17); Calcium 9.7 mg/dl (8.4-10.2); Carbon Dioxide 27 mmol/L (22-30); Chloride 100 mmol/L (98-107); Glucose 104 mg/dl (70-99); Potassium 4.8 mmol/L (3.5-5.1); Sodium 138 mmol/L (135-145); Total Bilirubin 0.9 mg/dl (0.2-1.3); Total Protein 7.1 g/dl (6.3-8.2); eGFR > 60.00
[2024-07-03 11:40] LABS: Vitamin D, 25-OH*** 32.3 ng/mL (30-80)
== END ==
LOC: RAD 10:15
PROVIDERS: ATTENDING PHYSICIAN Student in an Organized Health Care Education/Training Program; FAMILY PHYSICIAN Family Medicine
DX: E55.9 Vitamin D deficiency, unspecified (principal); M54.59 Other low back pain; Z51.81 Encounter for therapeutic drug level monitoring; S22.081A Stable burst fracture of T11-T12 vertebra, initial encounter for closed fracture; M80.00XA Age-related osteoporosis with current pathological fracture, unspecified site, initial encounter for fracture
CPT/HCPCS: 36415; 72110; 73564; 80053; 82306; 85025

== ENCOUNTER → 2024-07-31 10:49 | Outpatient (REF) | payer MEDICARE, BC, SELFPAY ==
[2024-07-31 11:27] LABS: % Eosinophils 6.7 % (0-6); % Immature Granulocytes 0.2 % (0-0.5); % Monocytes 8.6 % (1.7-9.3); % Neutrophils 50.5 % (42.2-75.2); Absolute Basophils 0.1 10^3/uL (0-0.2); Absolute Eosinophils 0.4 10^3/uL (0-0.7); Absolute Lymphocytes 1.9 10^3/uL (1.2-3.4); Absolute Monocytes 0.5 10^3/uL (0.1-0.6); Absolute Neutrophils 2.9 10^3/uL (1.4-6.5); Hematocrit 37.3 % (37.0-47.0); Hemoglobin 12.7 g/dL (12.0-16.0); Mean Corpuscular Hgb 31.4 pg (27.0-31.0); Mean Corpuscular Volume 92.1 fL (81.0-99.0); Mean Platelet Volume 11.3 fL (7.4-10.4); Nucleated Red Blood Cells % 0 %; Platelet Count 201 10^3/uL (130-400); Red Blood Cell Count 4.05 10^6/uL (4.20-5.40); Red Cell Dist. Width 12.4 % (11.5-14.5); White Blood Cell Count 5.8 10^3/uL (4.8-10.8)
[2024-07-31 12:02] LABS: Microalbumin, Random Urine 3.8 mg/dl (0.6-1.7); Microalbumin/creatinine Ratio 52.6 mg/g
[2024-07-31 12:24] LABS: ALT (SGPT) 20 U/L (0-35); AST (SGOT) 25 U/L (14-36); Alkaline Phosphatase 71 U/L (38-126); Blood Urea Nitrogen 6 mg/dl (7-17); Calcium 9.4 mg/dl (8.4-10.2); Carbon Dioxide 29 mmol/L (22-30); Chloride 100 mmol/L (98-107); Glucose 100 mg/dl (70-99); HDL Cholesterol 93 mg/dl; LDL Cholesterol, Calculated 94 mg/dl; Potassium 4.8 mmol/L (3.5-5.1); Sodium 136 mmol/L (135-145); Total Bilirubin 0.9 mg/dl (0.2-1.3); Total Cholesterol 205 mg/dl (50-199); Total Protein 7.6 g/dl (6.3-8.2); Triglyceride 91 mg/dl (10-149); Very Low Density Lipoprotein 18 mg/dl (0-30); eGFR > 60.00
[2024-07-31 12:53] LABS: TSH Reflex To Free T4 3.28 uIU/ml (0.47-4.68)
[2024-07-31 13:07] LABS: Glycohemoglobin (HgbA1c) 5.4 % (4.0-5.6)
== END ==
LOC: REG 10:49
PROVIDERS: ATTENDING PHYSICIAN Family Medicine
DX: I11.0 Hypertensive heart disease with heart failure (principal); Z86.73 Personal history of transient ischemic attack (TIA), and cerebral infarction without residual deficits; E78.2 Mixed hyperlipidemia; R73.03 Prediabetes
CPT/HCPCS: 36415; 80053; 80061; 82043; 82570; 83036; 84443; 85025

== ENCOUNTER → 2024-10-14 10:29 | Outpatient (REF) | payer MEDICARE, BC, SELFPAY ==
[2024-10-14 12:26] LABS: ALT (SGPT) 20 U/L (0-35); AST (SGOT) 24 U/L (14-36); Albumin 4.5 g/dl (3.5-5.0); Alkaline Phosphatase 57 U/L (38-126); Blood Urea Nitrogen 8 mg/dl (7-17); Calcium 9.3 mg/dl (8.4-10.2); Carbon Dioxide 28 mmol/L (22-30); Chloride 100 mmol/L (98-107); Glucose 95 mg/dl (70-99); Sodium 134 mmol/L (135-145); Total Protein 6.9 g/dl (6.3-8.2); eGFR > 60.00
[2024-10-14 12:55] LABS: Potassium 4.7 mmol/L (3.5-5.1)
== END ==
LOC: REG 10:29
PROVIDERS: ATTENDING PHYSICIAN Family Medicine; REFERRING PHYSICIAN Student in an Organized Health Care Education/Training Program
DX: E78.2 Mixed hyperlipidemia (principal); I11.0 Hypertensive heart disease with heart failure; R80.9 Proteinuria, unspecified
CPT/HCPCS: 36415; 80053

== ENCOUNTER → 2024-10-15 13:57 | Outpatient (REF) | payer MEDICARE, BC, SELFPAY | LOC: RAD 13:57 | PROVIDERS: ATTENDING PHYSICIAN Family Medicine; OTHER PHYSICIAN Student in an Organized Health Care Education/Training Program | DX: M81.0 Age-related osteoporosis without current pathological fracture (principal) | CPT/HCPCS: 77080 ==

== ENCOUNTER → 2024-11-24 10:18 | Outpatient (REF) | payer MEDICARE, BC, SELFPAY | LOC: REG 10:18 | PROVIDERS: ATTENDING PHYSICIAN Family Medicine | DX: K52.9 Noninfective gastroenteritis and colitis, unspecified (principal) | CPT/HCPCS: 74018 ==